=== PATIENT | female | born 2000 | race African-American/Black ===

== ENCOUNTER 2019-07-26 20:57 | Emergency (ER) | END 2019-07-26 21:17 | disposition left against medical advice (07) | LOC: ERS 20:57 | DX: Z53.21 Procedure and treatment not carried out due to patient leaving prior to being seen by health care provider (principal) ==

== ENCOUNTER 2022-02-17 13:18 | Emergency (ER) | payer OTHER ==
[2022-02-17] MEDS ORDERED: Boostrix 0.5 ML (Tdap) VIAL ONE (13:59)
[2022-02-17] MEDS ORDERED: Acetaminophen 500 MG TAB ONE (13:59)
[2022-02-17] MEDS ORDERED: Lidocaine 1% (PF) 30 ML VIAL ONE (13:59)
== END 2022-02-17 15:41 | disposition home or self-care (01) ==
LOC: ERS 13:18
DX: S61.012A Laceration without foreign body of left thumb without damage to nail, initial encounter (principal); X58.XXXA Exposure to other specified factors, initial encounter
CPT/HCPCS: 90471; 90715; J2001

== ENCOUNTER 2022-03-03 14:04 | Emergency (ER) | payer OTHER | END 2022-03-03 15:33 | disposition home or self-care (01) | LOC: ERS 14:04 | DX: S61.412D Laceration without foreign body of left hand, subsequent encounter (principal); W26.0XXD Contact with knife, subsequent encounter ==